=== PATIENT | male | born 1970 | race Caucasian/White ===

== ENCOUNTER 2017-02-14 14:26 | Emergency (ER) | payer SELFPAY ==
[~2017-02-14] VITALS: Ht 177.8 cm; Wt 67.4 kg
[~2017-02-14 14:26] MED LIST: OXYC1TAB9 PO; SULF1TAB24 PO
[2017-02-14 14:33] VITALS: BP 162/105
[2017-02-14] MEDS ORDERED: LIDOCAINE 1%, 20ML ONE (15:52)
[2017-02-14] MEDS ORDERED: LIDOCAINE 1%, 20ML INFIL ONE (16:00)
[2017-02-14] MEDS ORDERED: BACITRACIN ZINC OINT 500U/GM, 0.9 GM ONE (16:41)
== END 2017-02-14 17:29 | disposition home or self-care (01) ==
LOC: ED 17:15
DX: S69.91XA Unspecified injury of right wrist, hand and finger(s), initial encounter (principal); L03.011 Cellulitis of right finger; V29.9XXA Motorcycle rider (driver) (passenger) injured in unspecified traffic accident, initial encounter; Y93.55 Activity, bike riding; Y92.410 Unspecified street and highway as the place of occurrence of the external cause; Y99.8 Other external cause status
CPT/HCPCS: 10060

== ENCOUNTER 2017-06-03 13:17 | Inpatient (IN) | payer OTHER ==
[~2017-06-03] VITALS: Ht 177.8 cm; Wt 75.4 kg
[2017-06-03] MEDS ORDERED: SODIUM CHLORIDE 0.9% 1,000ML IVBOLUS ONE ×2 (14:00→17:00)
[2017-06-03] MEDS ORDERED: SODIUM CHLORIDE FLUSH 10ML SYR IVF ONE (14:00)
[2017-06-03] MEDS ORDERED: AMPICILLIN/SULBACTAM 3 GM in SODIUM CHLORIDE 0.9% 100 ML IVPB ONE (14:00)
[2017-06-03] MEDS ORDERED: ONDANSETRON 2MG/ML, 2ML IVPush ONE (14:00)
[2017-06-03 14:40] LABS: HEMATOCRIT 38.1 % (39.2-51.8); HEMOGLOBIN 12.8 g/dL (13.7-18.0); WHITE BLOOD COUNT 13.3 x10^3/uL (3.4-10)
[2017-06-03 14:51] LABS: BLOOD UREA NITROGEN 21 mg/dL (7-18)
[2017-06-03] MEDS ORDERED: morphine SULFATE 10 MG/ML, 1ML ONE ×2 (16:02→16:54)
[2017-06-03] MEDS ORDERED: ONDANSETRON 2MG/ML, 2ML ONE ×3 (16:02→20:33)
[2017-06-03] MEDS: MORPHINE SULFATE 4 MG/ML, 1ML IV PRN ×2 (16:07→16:57)
[2017-06-03] MEDS ORDERED: SODIUM CHLORIDE 0.9% 1,000 ML IV ONE (16:32)
[2017-06-03] MEDS ORDERED: PHARMACOKINETIC CONSULTATION MC ONE (17:00)
[2017-06-03] MEDS ORDERED: VANCOMYCIN 1,400 MG in SODIUM CHLORIDE 0.9% 250 ML IV ONE (17:00)
[2017-06-03] MEDS ORDERED: VANCOMYCIN PER PHARMACY IV ONE (17:00)
[2017-06-03] MEDS ORDERED: HYDROmorphone 1 MG/ML, 1ML ONE (17:05)
[2017-06-03] MEDS ORDERED: HYDROmorphone 1 MG/ML, 1ML IV ONE (17:30)
[2017-06-03] MEDS ORDERED: NS + 20MEQ KCL 1,000 ML IV SCH (19:33)
[2017-06-03] MEDS ORDERED: MIDAZOLAM 1 MG/ML, 2ML ONE (19:43)
[2017-06-03] MEDS ORDERED: FENTANYL PF 100 MCG/2ML ONE ×2 (19:43)
[2017-06-03] MEDS ORDERED: PROPOFOL 10 MG/ML, 20ML ONE (19:44)
[2017-06-03] MEDS: AMPICILLIN/SULBACTAM 3 GM in SODIUM CHLORIDE 0.9% 100 ML IV SCH (20:00)
[2017-06-03] MEDS ORDERED: ACETAMINOPHEN 325 MG TABLET PO PRN ×2 (20:00→20:30)
[2017-06-03] MEDS ORDERED: VANCOMYCIN PER PHARMACY MC PRN (20:00)
[2017-06-03] MEDS ORDERED: ENALAPRILAT 1.25 MG/ML, 2ML IV PRN (20:00)
[2017-06-03] MEDS ORDERED: morphine SULFATE 10 MG/ML, 1ML IVPush PRN (20:00)
[2017-06-03] MEDS ORDERED: ONDANSETRON 2MG/ML, 2ML IVPush PRN ×2 (20:00→20:30)
[2017-06-03] MEDS ORDERED: hydrALAzine 20 MG/ML, 1ML IV PRN (20:00)
[2017-06-03] MEDS ORDERED: POLYETHYLENE GLYCOL 17 GM PACKET PO PRN (20:00)
[2017-06-03] MEDS ORDERED: LABETALOL 5MG/ML, 20ML IVPush PRN (20:00)
[2017-06-03] MEDS ORDERED: DOCUSATE 100 MG CAPSULE PO PRN (20:00)
[2017-06-03] MEDS ORDERED: ROCURONIUM 10 MG/ML ONE (20:28)
[2017-06-03] MEDS ORDERED: SUCCINYLCHOLINE 20 MG/ML, 10ML ONE (20:28)
[2017-06-03] MEDS ORDERED: HYDROmorphone 1 MG/ML, 1ML IV PRN (20:30)
[2017-06-03] MEDS ORDERED: MEPERIDINE/PF 25MG/0.5ML IVPush PRN (20:30)
[2017-06-03] MEDS ORDERED: OXYcodone 5 MG/5 ML ORAL.SOL UDC PO PRN (20:30)
[2017-06-03] MEDS ORDERED: FENTANYL PF 100 MCG/2ML IV PRN (20:30)
[2017-06-03] MEDS ORDERED: PROMETHAZINE 25 MG/ML, 1ML IV PRN (20:30)
[2017-06-03] MEDS ORDERED: LABETALOL 5MG/ML, 20ML ONE (22:14)
[2017-06-03] MEDS ORDERED: ACETAMINOPHEN 650 MG/20.3 ML UDC ONE (22:42)
[2017-06-03] MEDS ORDERED: OXYcodone 5 MG/5 ML ORAL.SOL UDC ONE (22:42)
[2017-06-04] MEDS: AMPICILLIN/SULBACTAM 3 GM in SODIUM CHLORIDE 0.9% 100 ML IV SCH ×4 (01:53→20:58)
[2017-06-04] MEDS ORDERED: PHARMACOKINETIC CONSULTATION MC ONE (02:00)
[2017-06-04] MEDS ORDERED: PHARMACOKINETIC MONITORING MC PRN (02:00)
[2017-06-04 02:45] VITALS: BP 148/89
[2017-06-04 05:12] LABS: HEMATOCRIT 35.9 % (39.2-51.8); WHITE BLOOD COUNT 12.5 x10^3/uL (3.4-10)
[2017-06-04] MEDS: HYDROcodone/APAP 5/325 TABLET PO PRN ×3 (05:14→23:18)
[2017-06-04 05:17] LABS: BLOOD UREA NITROGEN 14 mg/dL (7-18)
[2017-06-04 07:37] VITALS: BP 145/83
[2017-06-04] MEDS: VANCOMYCIN 1,400 MG in SODIUM CHLORIDE 0.9% 250 ML IV SCH (12:33)
[2017-06-04 14:30] VITALS: BP 137/85
[2017-06-04] MEDS ORDERED: VANCOMYCIN 1,400 MG in SODIUM CHLORIDE 0.9% 250 ML IV SCH (17:00)
[2017-06-04 21:09] VITALS: BP 126/84
[2017-06-05] MEDS: VANCOMYCIN 1,400 MG in SODIUM CHLORIDE 0.9% 250 ML IV SCH ×2 (00:35→12:02)
[2017-06-05 02:18] VITALS: BP 136/89
[2017-06-05] MEDS: AMPICILLIN/SULBACTAM 3 GM in SODIUM CHLORIDE 0.9% 100 ML IV SCH ×2 (02:18→10:55)
[2017-06-05] MEDS: HYDROcodone/APAP 5/325 TABLET PO PRN ×2 (03:51→12:02)
[2017-06-05 05:28] LABS: HEMATOCRIT 35.2 % (39.2-51.8); HEMOGLOBIN 11.6 g/dL (13.7-18.0); WHITE BLOOD COUNT 10.3 x10^3/uL (3.4-10)
[2017-06-05 05:52] LABS: BLOOD UREA NITROGEN 9 mg/dL (7-18)
[2017-06-05] MEDS ORDERED: HYDR-883 PO (12:59)
[2017-06-05] MEDS ORDERED: SULF1TAB24 PO (12:59)
[2017-06-05] MEDS ORDERED: HYDR2TAB29 PO (13:23)
[2017-06-05] MEDS ORDERED: TIZA4TAB PO (13:24)
[2017-06-05 14:11] VITALS: BP 130/81
== END 2017-06-05 15:12 | disposition home or self-care (01) | DRG 853 ==
LOC: ED 18:08 → SUATTDRO 19:28 → EDIP 19:34 → 4NOR 22:45
PROVIDERS: ADMIT Family Medicine; ATTEND Family Medicine
PROC: 0L980ZZ Drainage of Left Hand Tendon, Open Approach (ICD-10-PCS; principal; 2017-06-03 22:00)
DX: A41.9 Sepsis, unspecified organism (principal); N17.0 Acute kidney failure with tubular necrosis; L02.512 Cutaneous abscess of left hand; I10 Essential (primary) hypertension; M65.132 Other infective (teno)synovitis, left wrist; Z83.3 Family history of diabetes mellitus
CPT/HCPCS: 36415; 80048; 82040; 83605; 83735; 85025; 87040; 87070; 87075; 87077; 87186; 87205; 96365; 96366; 96367; 96375; 96376; J0295; J1170; J2250; J2405; J2704; J3010; J3370; J3480; J0330; J7030; J7050